=== PATIENT | male | born 1990 | race Caucasian/White ===

== ENCOUNTER 2016-10-29 21:31 | Emergency (ER) | payer MEDICAID ==
[2016-10-29 22:13] VITALS: BP 142/104
--- NOTE | 2016-10-29 22:57 | ER Document Report ---
ED General - General Chief Complaint: Jaw Pain Stated Complaint: RIGHT SIDE JAW PAIN Time Seen by Provider: 10/29/16 22:48 Notes: Patient is a 26-year-old male who presents with complaint of pericoronitis. Patient had this before. He has a wisdom tooth on the right lower jaw that has been trying to erupt. He developed some pain over the gum tissue around it as well as some small amount of swelling to his jaw. No difficulty breathing or swallowing. No fevers. He called his dentist who told him to get started on antibiotics before he comes in to see the dentist. He says he does not have dental insurance and therefore cannot afford to have the tooth pulled. He has no other complaints at this time. TRAVEL OUTSIDE OF THE [place] IN LAST 30 DAYS: No - Related Data Allergies/Adverse Reactions: amoxicillin [Amoxicillin] Allergy (Verified 10/29/16 22:10) ampicillin [Ampicillin] Allergy (Verified 10/29/16 22:10) Past Medical History - Social History Smoking Status: Never Smoker Frequency of alcohol use: None Drug Abuse: None Family History: Reviewed & Not Pertinent Renal/ Medical History: Denies: Hx Peritoneal Dialysis Review of Systems - Review of Systems Notes: My Normal Review Basic REVIEW OF SYSTEMS: CONSTITUTIONAL : Denies fever, chills, or sweats. Denies recent illness. EENT: Pain over right lower jaw. NEUROLOGICAL: Denies altered mental status or loss of consciousness. Denies headache. Denies weakness or paralysis or loss of use of either side. Denies problems with gait or speech. Denies sensory or motor loss. ALL OTHER SYSTEMS REVIEWED AND NEGATIVE. Physical Exam - Vital signs Vitals: Temp Pulse Resp BP Pulse Ox 98.4 F 88 18 142/104 H 99 10/29/16 22:10 10/29/16 22:10 10/29/16 22:10 10/29/16 22:10 10/29/16 22:10 - Notes Notes: General Appearance: Well nourished, alert, cooperative, no acute distress, mild obvious discomfort. Normal voice. No difficulty breathing or swallowing on exam. Vitals: reviewed, See vital signs table. Head: no swelling or tenderness to the head Eyes: PERRL, EOMI, Conjuctiva clear Mouth: Patient has inflammation of the gingiva over the top of the erupting wisdom tooth of the right lower jaw. No significant swelling to the jaw itself. Throat: No tonsillar inflammation, No airway obstruction, No lymphadenopathy Neck: Supple, no neck tenderness Skin: warm, dry, appropriate color, Neuro: speech clear, oriented x 3, normal affect, responds appropriately to questions. Course - Vital Signs Vital signs: Temp Pulse Resp BP Pulse Ox 98.4 F 88 18 142/104 H 99 10/29/16 22:10 10/29/16 22:10 10/29/16 22:10 10/29/16 22:10 10/29/16 22:10 - Transfer of Care Notes: 10/29/16 23:48 Patient was placed on clindamycin. She is encouraged to follow-up closely with his dentist. I did give him information to the [facility] being that they have a new free dental clinic so he can follow-up with them in regards for removal of the wisdom tooth if he cannot afford to have it done on his own. Patient encouraged to return to ER if he has fevers, swelling of the face, difficulty breathing, or difficulty swallowing. Patient agrees with plan and will be discharged home. Dictation of this chart was performed using voice recognition software; therefore, there may be some unintended grammatical errors. Discharge - Discharge Clinical Impression: Pericoronitis Condition: Good Disposition: HOME, SELF-CARE Additional Instructions: Please return to the ER immediately if you develop increasing swelling, fevers, difficulty swallowing or breathing, or feel unwell. Please follow up with a dentist as soon as you can. Please call the [facility] to get on their waiting list for the dental clinic. Prescriptions: Clindamycin HCl 300 mg PO ASDIR #56 capsule
[2016-10-30] MEDS ORDERED: CLINDAMYCIN HCL 150 MG CAPSULE PO ONE (00:15)
== END 2016-10-30 00:21 | disposition home or self-care (01) ==
LOC: ER 21:31
DX: K05.30 Chronic periodontitis, unspecified (principal); R68.84 Jaw pain
CPT/HCPCS: 99283; J3490

== ENCOUNTER → 2017-02-12 | Outpatient (CLI) | payer MEDICAID ==
--- NOTE | 2017-02-12 17:56 | RADIOLOGY REPORT (SQ) ---
EXAM DESCRIPTION: U/S THYROID/SFT TISS HD NECK COMPLETED DATE/TIME: 02/12/2017 5:15 pm REASON FOR STUDY: FAM HX THYROID CANCER Z80.8 FAMILY HISTORY OF MALIGNANT NEOPLASM OF ORGANS OR SYS T COMPARISON: None. TECHNIQUE: Dynamic and static ramirez-scale images acquired of the thyroid gland. Selected additional c olor/power Doppler images recorded. All images stored to PACS. LIMITATIONS: None. FINDINGS: RIGHT LOBE: Normal size, 4.3 x 1.5 x 1.5 cm. Homogeneous echotexture. No cystic or solid masses. LEFT LOBE: Normal size, 3.8 x 1.2 x 1.5 cm. Homogeneous echotexture. No solid masses. There is a 3 .3 x 1.7 x 2 mm cyst on the lower pole. ISTHMUS: Normal size, 2.5 mm. Homogeneous echotexture. No cystic or solid masses. OTHER: No other significant finding. IMPRESSION: Essentially normal thyroid ultrasound. There is a very small cyst on the lower pole of the left lobe. TECHNICAL DOCUMENTATION: JOB ID: [id number]- All Rights Reserved
== END ==
LOC: RAD 16:36
PROVIDERS: ATTEND Internal Medicine
DX: Z80.8 Family history of malignant neoplasm of other organs or systems (principal)
CPT/HCPCS: 76536